=== PATIENT | female | born 1985 | race Caucasian/White ===

== ENCOUNTER 2017-06-03 08:57 | Inpatient (IN) | payer OTHER, MEDICAID ==
[2017-06-03] VITALS (10 sets, daily range): BP systolic 120–169; BP diastolic 66–114; PULSE 79–95; RESP 16–22; O2SAT 96–100
[~2017-06-03] VITALS: Ht 152.4 cm; Wt 92.4 kg
[~2017-06-03 08:57] MED LIST: BIFI4CAP PO; LORA10TA7 PO; OMEP-113 PO
--- NOTE | 2017-06-03 09:09 | ED.REPORT ---
HPI-Stroke / CVA Jun 03, 2017 ED Provider: Dr. Ramirez Pt is a 32 y/o female w/ a hx of ventral septal defect s/p repair, down syndrome , presenting to the ED with her sister c/o L-sided weakness onset this morning. At 22:00 last night the patient noticed she was having some slurred speech when she was trying to talk to someone over Facetime. This morning, after waking up she was showering and noticed that she was having trouble lifting her left arm to wash herself and also was experiencing left-sided facial numbness. It is unclear if she was experiencing this weakness immediately after waking up. She went to work and fellow employees noticed that she was having difficulty using her left arm and leg and sent her home. Her speech is normal at current time per her sister. The patient has no history of stroke. She did have a ventral septal defect repair at an age younger than 4 and doctors at that point told her she would be at least a moderate risk for stroke by the age of 32 because of this. She is not anticoagulated and does not take aspirin. She does not smoke , drink, or take drugs. Nursing Notes Stated Complaint: NUMB ON SIDE OF FACE AND BODY Chief Complaint: Stroke Symptoms Nursing Notes Reviewed: Yes Allergies: Coded Allergies: ketamine (Verified Allergy, Severe, anaflaxis, 03/27/15) Sulfa (Sulfonamide Antibiotics) (Verified Allergy, Unknown, 03/27/15) Scheduled Bran/Gum/Fib/Bety/Psyl/Kelp/Pec (Fiber 6 Tablet) 1,000 Mg Tablet 1,000 MG PO BID (Reported) L.acidoph & Paracasei,B.lactis (Probiotic) 10 Billion Cell Capsule 1 EACH PO DAILY (Reported) Loratadine (Loratadine) 10 Mg Capsule 10 MG PO DAILY (Reported) Norgestimate-Ethinyl Estradiol (Previfem) 1 Each Tablet 1 EACH PO DAILY ( Reported) Omeprazole (Omeprazole) 20 Mg Capsule.dr 20 MG PO DAILY (Reported) General Time Seen by Provider: 09:10 Chief Complaint Weakness Left-sided Hx Obtained From: Patient, Other family... Arrived By: Walk-in Time last known well 2200 Sudden in Onset?: No (unknown) Symptom Duration: Since onset Progression Since Onset: Gradually worsening (unknown) Severity: Current: No pain currently Severity: Maximum: No pain Recent Healthcare: No recent hospitalization Similar Sx Previous: No Risk Factors )( TPA Administration/Criteria Stroke Thrombolytic Therapy : TPA Considered: Yes Neurologist Contacted: No TPA Administered Intravenously: No, exclusion criteria NIH Stroke Scale Level of Consciousness: Alert and responsive (0) Ask Month & Age: Trauma/lang barrier (1) Open/Close Eyes/Hand Shovel Log Loader Operator: Performs both tasks (0) Horizontal EO Movements: None (0) Visual Casey: No visual loss (0) Facial Palsy: Unil complete, up&low (3) Right Arm Motor Drift (10s): No drift 10 sec (0) Left Arm Motor Drift (10s): Drift, not touch bed (1) Right Leg Motor Drift (5s): No drift 5 sec (0) Left Leg Motor Drift (5s): No drift 5 sec (0) Limb Ataxia FNF/Heel-Zavala: Ataxia in 1 limb (1) (LUE) Sensation (Arms/Legs/Face): No sensory loss (0) Language Aphasia: No aphasia, normal (0) Dysarthria: No dysarthria, normal (0) (baseline per sister) Extinction/Inattention: No exctinct/inattent (0) NIHSS Score: 6 Time NIHSS Performed: 09:15 Date NIHSS Performed: Jun 03, 2017 Past Medical History Past Medical History Notes: Deathly afraid of needles - very difficult IV start due to noncompliance Past Medical History Down syndrome Ventral septal defect s/p repair at young age (less than 2) Anxiety Constipation IBS Past Surgical History Ventral septal defect repair Vaginal malformation Smoking History Never Smoker Social History Alcohol Use: Denies alcohol use Drug Use: Denies drug use Ambulatory Status Independent Review of Systems Neurologic: Reports: Focal weakness, Numbness, Slurred speech Complete sys rev & neg: except as marked. Physical Exam Initial Vital Signs Vital Signs (First) Date Time Temp Pulse Resp B/P Pulse Ox O2 Delivery O2 Flow Rate FiO2 06/03/17 09:05 36.7 84 16 150/114 100 Room Air Initial VS: Reviewed, Vital signs normal ENT: Mucous membranes moist, Conjunctiva normal, No scleral icterus Abdomen / GI: Soft, Non-tender Skin: Warm, Dry, No cyanosis Psychiatric: Mood/affect normal, Behavior normal, Normal thought content General/Constitutional: Awake, Alert, No acute distress, Cooperative, Not toxic appearing Appearance consistent with Down syndrome Head / Eyes: Atraumatic, Normocephalic, PERRL, EOMI Neck: Atraumatic, Supple, No meningismus, Full range of motion Respiratory / Chest: Breath sounds NL, Breath sounds = bilat, No respiratory distress, No rales, No rhonchi, No wheezing Cardiovascular: Heart rate NL, Regular rhythm, Heart sounds NL, No murmurs Neurologic: Oriented X3, Speech NL (baseline), No sensory deficits, Memory NL See NIH stroke scale = 6 Interpretation & Diagnostics Interpretation & Diagnostics: MRI brain w/out contrast: IMPRESSION: 1. Small right frontal temporal focus of acute to subacute ischemia. No visualized superimposed hemorrhage. Dictated by: Kori Pike M.D. on 06/03/2017 at 13:25 Approved by: Kori Pike M.D. on 06/03/2017 at 13:28 Lab Results Interpretation Result Diagram: 06/03/17 1410 06/03/17 1410 Test 06/03/17 10:46 06/03/17 14:10 Urine Color Straw (YELLOW) Urine Appearance Hazy (CLEAR,HAZY) Urine pH 6.0 (5.0-8.0) Urine Specific [place] 1.005 (1.003-1.035) Urine Protein Negativemg/dL (NEG,TRACE) Urine Glucose (UA) Negativemg/dL (NEGATIVE) Urine Ketones Negativemg/dL (NEGATIVE) Urine Occult Blood Negative (NEGATIVE) Urine Nitrite Negative (NEGATIVE) Urine Bilirubin Negative (NEGATIVE) Urine Urobilinogen Normalmg/dL (NORMAL) Urine Leukocyte Esterase Negative (NEGATIVE) Urine RBC 0-2/hpf (0-2) Urine WBC 0-5/hpf (0-5) Urine Epithelial Cells Occasional/hpf (NONE-MOD) Urine Crystals None seen (NONE SEEN) Urine Bacteria Few/hpf (NONE-FEW) Urine Hyaline Casts None/lpf (NONE) Urine Granular Casts None seen (NONE SEEN) Urine Waxy Casts None seen (NONE SEEN) Urine Red Blood Cell Casts None seen (NONE SEEN) Urine White Blood Cell Casts None seen (NONE SEEN) Urine Mucus None seen (None Seen) Urine Trichomonas None seen (NONE SEEN) Urine Yeast None (NONE SEEN) Urinalysis Comment None Urine Culture Reflexed Not indicated White Blood Count 11.2th/mm3 (3.8-10.1) Red Blood Count 5.60mil/mm3 (3.90-5.20) Hemoglobin 15.8g/dL (12.0-15.6) Hematocrit 48.0% (35.0-46.0) Mean Corpuscular Volume 85.7fL (81-100) Mean Corpuscular Hemoglobin 28.2pg (27.0-35.0) Mean Corpuscular Hemoglobin Concent 32.9% (32.0-37.0) Red Cell Distribution Width 12.9% (12.3-15.4) Platelet Count 221bil/L (150-400) Neutrophils (%) (Auto) 65.8% (40-74) Lymphocytes (%) (Auto) 26.8% (14-46) Monocytes (%) (Auto) 6.5% (4-12) Eosinophils (%) (Auto) 0.3% (0-5) Basophils (%) (Auto) 0.4% (0-3) Prothrombin Time 9.5sec (8.1-12.5) Prothromb Time International Ratio 0.89ratio Activated Partial Thromboplast Time 23.8sec (22.8-33.0) Sodium Level 146mEq/L (134-144) Potassium Level 4.7mEq/L (3.5-5.2) Chloride Level 104mEq/L (97-108) Carbon Dioxide Level 20mmol/L (18-29) Blood Urea Nitrogen 7mg/dL (6-20) Creatinine 0.92mg/dL (0.57-1.00) Estimat Glomerular Filtration Rate 103mL/min (>59) Glucose Level 98mg/dL (60-99) Calcium Level 9.3mg/dL (8.5-10.1) Total Bilirubin 0.3mg/dL (0.0-1.2) Aspartate Amino Transf (AST/SGOT) 35U/L (0-50) Alanine Aminotransferase (ALT/SGPT) 28U/L (0-32) Alkaline Phosphatase 87U/L (25-150) Troponin T < 0.010ug/L (0.0-0.011) Total Protein 7.9g/dL (6.4-8.4) Albumin 4.1g/dL (3.4-5.0) ECG Interpretation ECG Interpretation: Sinus rhythm rate 74 RBBB No prior available for comparison Time: 10:54 Interpreted by: ED physician Normal ECG Interpretation: No acute ischemic changes CT Head Interpretation IMPRESSION: 1. Findings suspicious for small, subacute right frontal lobe infarct. Recommend MRI of the brain for further evaluation. 2. Findings telephoned to Dr. Hawk Ramirez 06/03/17 at 0921 hours. This study fulfills neurological imaging criteria for inclusion or exclusion of acute stroke therapies based on available published neurological imaging guidelines. Dictated by: Hiwot Strong MD, PhD on 06/03/2017 at 10:02 Approved by: Hiwot Strong MD, PhD on 06/03/2017 at 10:08 Study: Head CT no contrast Interpretation / Wet Read by: Interpret - Radiologist, Discussed w radiologist Re-Eval/Medical Decision Med Decision/Clinical Course 32-year-old female history of Down syndrome and VSD repaired at presenting with left upper extremity weakness and left facial droop last known normal last night. Patient with difficulty speaking last night. Then they noticed left upper extremity weakness and left facial droop on waking up this morning. Last normal greater than 12 hours prior to arrival. Code stroke was called with question of subacute right frontal infarct. Not a TPA candidate given well out of the window. MRI was performed with right frontotemporal infarct. Patient will be admitted for stroke workup. Given aspirin. Source of Hx: Family Re-Evaluation/Progress #1: Time of Eval: 09:37 Re-Evaluation/Progress Note: Pt rechecked. Informed pt and family of need for admission. Pt understands and agrees with plan for admission. All questions addressed. Re-Evaluation/Progress #2: Time of Eval: 11:58 Re-Evaluation/Progress Note: It has been very difficult to obtain an IV and labs due to patient resisting placement despite sedatives being given. She is very distraught whenever an IV is attempted to be placed. Re-Evaluation/Progress #3: Time of Eval: 13:53 Re-Evaluation/Progress Note: MRI obtained. Still attempting to place IV / obtain labs... Consultation : Referral / Consult Name: Dave Finley MD Consulted With: Hospitalist Call Returned at: 15:39 Owner Oral Surgeon: Will see patient, Agrees with eval, Agrees with plan, Accepts admit Counseled Regarding: Diagnosis, Lab results, Need for admission Patient Discharge & Departure Impression: Primary Impression: Acute ischemic stroke Disposition: ADMITTED TO HOSPITAL Discharge Condition All VS Reviewed: Yes Condition: Stable Referrals: Nilesh Harper MD (PCP) Crit Care Except Billable Proc Time Spent: 30-74 minutes Services Performed: Patient management by me, Time spent at bedside, Reviewing test results, Reviewing imaging, Discussing patient care, Documentation in record, Time with fam/surrogate Critical Care Notes: 35 minutes Scribe Attestation Portions of this note were transcribed by Zeeshan Rose. I, Dr. Ramirez personally performed the history, physical exam and medical decision-making; I reviewed and confirmed the accuracy of the information in the transcribed note. copies to: Nilesh Harper MD, Ben M MD Jun 03, 2017 09:09 ZEESHAN ROSE Jun 03, 2017 09:19
--- NOTE | 2017-06-03 10:03 | NUR ---
spiritual care: code response supportive attention to pt's sister rene as pt received care. caregiver and aunt notified. spiritual care available to follow as needed.
--- NOTE | 2017-06-03 10:09 | DRSVH ---
PROCEDURE: CT BRAIN TPA INDICATIONS: left sided facial droop/left hand weakness TECHNIQUE: Noncontrast 4.5 mm thick angled axial sections acquired from the foramen magnum to the vertex, with c oronal reformats. COMPARISON: None. FINDINGS: Image quality: Limited by patient motion. CSF spaces: Basal cisterns are patent. No extra-axial fluid collections. Ventricles are normal in size and shape. Brain: No midline shift. No intracranial masses or hemorrhage. There is a focal, subtle hypodensity with local loss of beckford-white matter differentiation in the right frontal lobe suspicious for subacu te infarct. Incidental note made of cavum septum pellucidum. Skull and face: Calvarium and visualized facial bones are intact, without suspicious lesions. Sinuses: Visualized sinuses and mastoids are clear. IMPRESSION: 1. Findings suspicious for small, subacute right frontal lobe infarct. Recommend MRI of the brain for further evaluation. 2. Findings telephoned to Dr. Hawk Ramirez 06/03/17 at 0921 hours. This study fulfills neurological imaging criteria for inclusion or exclusion of acute stroke therapie s based on available published neurological imaging guidelines. Dictated by: Hiwot Strong MD, PhD on 06/03/2017 at 10:02 Approved by: Hiwot Strong MD, PhD on 06/03/2017 at 10:08
[2017-06-03] MEDS ORDERED: LORazepam 1 mg Tablet PO ONE (10:40)
[2017-06-03 11:46] LABS: APPEARANCE,URINE HAZY (CLEAR,HAZY); COLOR,URINE STRAW (YELLOW); OCCULT BLOOD,URINE NEGATIVE (NEGATIVE); UROBILINOGEN,URINE NORMAL (NORMAL)
[2017-06-03] MEDS ORDERED: FIBE1TAB4 PO (13:30)
[2017-06-03] MEDS ORDERED: OMEP20CA11 PO (13:30)
[2017-06-03] MEDS ORDERED: LORA10CA9 PO (13:30)
[2017-06-03] MEDS ORDERED: NORG1TAB82 PO (13:30)
[2017-06-03] MEDS ORDERED: L.AC1CAP6 PO (13:30)
[2017-06-03 14:22] LABS: BASOPHILS % (AUTO) 0.4 % (0-3); EOSINOPHILS % (AUTO) 0.3 % (0-5); MONOCYTES % (AUTO) 6.5 % (4-12); Mean Corpuscular Hemoglobin 28.2 pg (27.0-35.0); Mean Corpuscular Volume 85.7 fL (81-100); NEUTROPHILS % (AUTO) 65.8 % (40-74); Platelet Count 221 bil/L (150-400)
--- NOTE | 2017-06-03 14:29 | DRSVH ---
PROCEDURE: MRI BRAIN WITHOUT CONTRAST ([id number]) INDICATIONS: Left facial droop. Left upper extremity weakness TECHNIQUE: Noncontrast axial T1 spin echo, axial T2 fast spin echo, sagittal and axial FLAIR, coronal T2 fast sp in echo, axial gradient echo, axial diffusion and ADC through the brain. COMPARISON: None. FINDINGS: Image quality: Excellent. CSF Spaces: Basal cisterns are patent. No extra-axial fluid collections. Ventricles are normal in size and shape. Brain: No intracranial masses or hemorrhage. Mckee/white matter interface is normal. Brainstem appe ars normal. Diffusion-weighted images demonstrate hyperintense signal within the right frontal tempo ral lobe with corresponding hypointense ADC and hyperintense T2/FLAIR signal intensity. No chronic is chemic insults. Normal intravascular flow voids are present. There is incidental note of a cavum se ptum pellucidum. Skull and face: Calvarium has normal marrow signal. Orbits appear normal. Sinuses: Sinuses and mastoids are clear. IMPRESSION: 1. Small right frontal temporal focus of acute to subacute ischemia. No visualized superimposed hemor rhage. Dictated by: Koir Pike M.D. on 06/03/2017 at 13:25 Approved by: Kori Pike M.D. on 06/03/2017 at 13:28
[2017-06-03 14:48] LABS: INR 0.89 ratio
[2017-06-03 15:00] LABS: TROPONIN T < 0.010 ug/L (0.0-0.011)
--- NOTE | 2017-06-03 15:22 | NUR ---
Evaluation completed. Please go to "Notes" then click on "Assessments and Notes" (bottom left corner of screen). Then select appropriate discipline tab on top of screen.
--- NOTE | 2017-06-03 15:41 | PCM.HPMED ---
Subjective Date of Service Jun 03, 2017 Primary Provider: Admitting Physician: Dave Finley MD Primary Care Physician: Nilesh Harper MD Attending Physician: Dave Finley MD Chief Complaint: Left sided weakness History of Present Illness: This is a 52-year-old female with a history of ventral septal defect, status post repair, Down syndrome. Patient presented to the ED with left-sided weakness that started today in the morning. Her labs showed mild Hypernatremia , EKG personally reviewed, significant for sinus rhythm, first-degree AV block, with AK 205, QRS 94, QTC 420. MRI showed Small right frontal temporal focus of acute to subacute ischemia. Patient admitted to the hospital for further evaluation and management. I ordered PT OT, aspirin daily, Lipitor 40 mg daily , swallow evaluation. Review of Systems: REVIEW OF SYSTEMS: GENERAL: no malaise, no fevers., SEE HPI HEENT: Negative for frequent or significant headaches All other reviewed and negative other than HPI. Allergies Coded Allergies: ketamine (Verified Allergy, Severe, anaflaxis, 03/27/15) Sulfa (Sulfonamide Antibiotics) (Verified Allergy, Unknown, 03/27/15) PMH ventral septal defect, status post repair; Down syndrome Surgical History Ventricular septal defect repair Family History Hypertension Social History Hx Alcohol Use: No Hx Substance Use: No Hx Tobacco Use: No Smoking Status: Never Smoker Exam Vital Signs Vital Sign - Last Date Time Temp Pulse Resp B/P Pulse Ox O2 Delivery O2 Flow Rate FiO2 06/03/17 15:28 36.8 91 18 120/66 99 Room Air Exam PHYSICAL EXAM: GENERAL: Alert, not in distress, cooperative HEAD: atraumatic, normocephalic, no bruises. EYES: EOMI, anicteric SKIN: Skin color normal, turgor normal. No visible rashes or lesions. EAR, NOSE, MOUTH, THROAT: Lips, oral mucosa, tongue are moist, pink, no lesions. NECK: supple ROM normal. RESPIRATORY: Lungs clear to auscultation. Good diaphragmatic excursion. Normal percussion sound. CARDIAC: normal S1 and S2; no rubs, or gallops; regular rate and rhythm ABDOMEN: Abdomen soft, non-tender. BS normal. No masses or organomegaly. MUSCULOSKELETAL: ROM full, muscles are not tender EXTREMITIES: no pitting edema in LE, no new deformities or skin discoloration. NEURO: Alert, oriented X 3, Sensation grossly intact., Left facial droop present, other Cranial nerves II-XII intact, Motor function - left sided weakness mostly affecting L arm/hand. PULSES: 2+ radial, 2+ carotid Lab and Diagnostics Result Diagram: 06/03/17 1410 06/03/17 141 Assessment & Plan This is a 52-year-old female with a history of ventral septal defect, status post repair, Down syndrome. Patient presented to the ED with left-sided weakness that started today in the morning. Her labs showed mild Hypernatremia , EKG personally reviewed, significant for sinus rhythm, first-degree AV block, with AK 205, QRS 94, QTC 420. MRI showed Small right frontal temporal focus of acute to subacute ischemia. Patient admitted to the hospital for further evaluation and management. Acute stroke - PT/OT, aspirin daily, Lipitor 40 mg daily, swallow evaluation, echocardiography. Hyponatremia - Mild - monitor DVT PROPHYLAXIS: Heparin Code status: Full code Disposition: discharge in 1-2 days after patient improves. Plan of care discussed with ED physician; Labs, radiology tests, Tele and ECG reviewed. Plan of care, medication side effects, home medication, diagnostic procedures and available alternatives were discussed and reviewed with patient/family. All questions answered. Patient/family verbalized understanding, approved and agreed to plan of care. Given patient's current condition, I certify, in my opinion inpatient services greater than two midnights are medically necessary for this patient. Please see H&P and MD progress notes for additional information about patient's course of treatment. VTE Prophylaxis: Sub-Q Heparin (Unfractionated) Resuscitation Status: CPR: Attempt Resuscitation Dave Finley MD Jun 03, 2017 15:41
[2017-06-03] MEDS ORDERED: Ondansetron 2 mg/mL 2 mL Inj IVPUSH PRN (15:45)
[2017-06-03] MEDS ORDERED: Alum-Mag Hydrox-Simeth 30 mL Suspension PO PRN (15:45)
[2017-06-03] MEDS ORDERED: Polyethylene Glycol (PEG) 17 Gm Powder PO PRN (16:20)
[2017-06-03] MEDS: Heparin 5,000 Unit/mL Inj SUBQ SCH (16:30)
--- NOTE | 2017-06-03 19:35 | NUR ---
Admit: Patient arrived to [facility] @ approx 1630 via stretcher. Ambulated from stretcher to bed 2PA. Stand up weight obtained. Alert & oriented. Family at bedside. Denies pain, nausea, CHICAS. Complained of dizziness. SR 80s per crime lab technician. VSS. Left facial droop, left drum worker weakness, slurred speech with drooling. Stroke booklet provided. Family relays issue of patients extreme fear to needles. Requesting not to have any blood draw or needle sticks. Refused Heparin injections. Discussed risk for blood clots. Bed in low and locked position, bed rails up x3, call light within reach, non-skid socks on for safety. Oriented to room and call light system.
[2017-06-04] VITALS (8 sets, daily range): BP systolic 117–142; BP diastolic 80–86; PULSE 70–79; RESP 14–18; O2SAT 97–100
[2017-06-04] MEDS: Heparin 5,000 Unit/mL Inj SUBQ SCH ×4 (00:30→19:14)
--- NOTE | 2017-06-04 05:56 | NUR ---
Nurse Note Noc shift Patient is alert and oriented to self, place and time, disoriented to situation, appears to have some developmental delay. She denies chest pain but reported some left face pain which was relieved by Tylenol. She has a slurred mumbled speech, left sided facial droop, left arm flaccid and some numbness, and slight weakness on left leg. Pupils are round equal and reactive to light and accommodating. Patient did not have any new neurological symptoms. Heparin held because patient is terrified by needles and mother requested for med to be held. Pt was up few times to use BSC required 2 PA with transfer. she slept well most of the night, parent in the room with patient all shift.
--- NOTE | 2017-06-04 07:42 | NUR ---
NUTRITION ASSESSMENT: ASSESS:32 YO female presented to the ED with left-sided weakness that started yesterday morning. MRI showed small right frontal temporal focus of acute to subacute ischemia. Her diet has been unable to be advanced beyond stimulation by Speech Therapy. PO intake 75% x 1 tray, insufficient to meet nutrient needs, as stimulation diet consists of 2 items per tray of pureed textured foods. PMHx:Ventral septal defect, status post repair, Down syndrome. DIET:Stimulation, nectar thick liquids. PO intake 75% x 1 tray. LABS: Reviewed. No labs ordered today. MEDICATIONS: Reviewed. NUTRITION FOCUSED PHYSICAL ASSESSMENT: GI symptoms / stool: No BM reported.Jan: 19. Skin Integrity: No issues reported. ANTHROPOMETRICS: Current Wt: 92.7 kgBMI: 39.0 kg/m2. IBW: 45.5 kg (203.9% IBW) ESTIMATED NEEDS (CLASS II OBESITY): Calories: 1136 - 1364 kcal (25 - 30 kcal / kg IBW) Protein: 82 - 91 g protein (1.8 - 2.0 g / kg IBW) NUTRITION DIAGNOSIS: 1)Chewing / swallowing difficulties related to acute CVA, as evidenced by inability to advance diet beyond stimulation texture, with associated inadequate PO intake. INTERVENTION: 1) Once diet advanced beyond stimulation texture, will add supplements to trays to better meet nutrient needs. MONITOR/EVALUATE: Diet advance / tolerance, PO intake, labs, GI/nutrition status. Follow up per moderate nutrition risk guidelines.
--- NOTE | 2017-06-04 09:14 | NUR ---
Social Work: Initial Assessment Data: Pt is a 32 y/o female admitted for stroke. Pt's PCP is Dr Harper, pt's insurance is [employer]/disabled with [facility] Medicaid. EMR reviewed, readmit score is 2, low. Pt has downsyndrome. Pending therapies: PT, OT. HOME HEALTH TRAVEL OT met with pt and mother at bedside, role explained. Pt states she lives in [place] with her sister and roommate in a single story home where she uses no DME. She has no hx of HH or SNF, no LTC or VA benefits, and is not a caregiver. Pt has a caregiver, Thao Moreira through [facility], possibly DD services. Pt's mother states pt has not been up out of bed while in the hospital so far. HOME HEALTH TRAVEL OT will follow up post therapy assessments for possible d/c needs. Assessment: Pt with caregiving at baseline. Downsyndrome. Plan: HOME HEALTH TRAVEL OT will follow up post therapy assessments for possible d/c needs. GHAZALA Riojas Addendum: 06/04/17 at 0918 by AVRIL PARRY Amended: Links added.
[2017-06-04] MEDS ORDERED: Haloperidol 5 mg/mL Inj IVPUSH ONE (10:05)
--- NOTE | 2017-06-04 12:32 | NUR ---
Off Unit: Patient transported to [facility] @ approx 1230 via wheelchair accompanied by transporter and patients sister. digital imaging technician notified. No apparent distress noted at time of transport
--- NOTE | 2017-06-04 12:35 | DRSVH ---
[facility] [address] [place] [address] Echocardiogram Report Name: LATRICE MCBRIDE Date: 2016 Height: 60 in Hospital Exam Location: [facility] Weight: 204 lb Gender: Female BSA: 1.9 m2 : 1985 Age: 32 yrs BP: 129/84 mm Hg Reason For Study: STROKE Ordering Physician: Performed By: Cari Grier Referring Physician: NATALIA BORGES Interpretation Summary The left ventricle is normal in size, wall thickness, and systolic function without any focal wall motion abnormalities. The ejection fraction is estimated to be 55-60%. Assessment of diastolic parameters indicates normal left ventricular diastolic function and normal filling pressures. The right ventricle is not well visualized. Pulmonary artery pressures cannot be estimated because of the lack of a measurable TR jet velocity. The left atrial size is normal. The right atrium is normal in size. Injection of contrast documented no interatrial shunt. There is no Doppler evidence for an interatrial shunt. There is no significant valvular heart disease. The aortic root is normal size. No clear cut evidence for a cardioembolic stroke. Procedure: A two-dimensional transthoracic echocardiogram with color flow and Doppler was performed. A saline contrast injection was performed to assess for cardiac shunting. The injection was performed through an intravenous line in the right arm. The study quality was technically difficult. There is no prior echocardiogram noted for this patient. The patient was in normal sinus rhythm during the exam. Left Ventricle: The left ventricle is normal in size, wall thickness, and systolic function without any focal wall motion abnormalities. The ejection fraction is estimated to be 55-60%. Assessment of diastolic parameters indicates normal left ventricular diastolic function and normal filling pressures. Right Ventricle: The right ventricle is not well visualized. Atria: The left atrial size is normal. The right atrium is normal in size. Injection of contrast documented no interatrial shunt. There is no Doppler evidence for an interatrial shunt. Mitral Valve: The mitral valve leaflets appear mildly thickened, but open well. The mitral valve leaflets appear to open well. There is trace mitral regurgitation. Aortic Valve: The aortic valve is normal in structure and function. No aortic regurgitation is present. Tricuspid Valve: The tricuspid valve is normal. There is a trace or physiologic amount of tricuspid regurgitation. Pulmonary artery pressures cannot be estimated because of the lack of a measurable TR jet velocity. Pulmonic Valve: The pulmonic valve leaflets are thin and pliable; valve motion is normal. There is a trace or physiologic amount of pulmonic regurgitation. There is no significant valvular heart disease. Great Vessels: The aortic root is normal size. The ascending aorta is normal in size. The aortic arch is normal in size. The pulmonary artery is not well visualized, but is probably normal size. The inferior vena cava was not visualized. Pericardium/ Pleura There is no pericardial effusion. There is no pleural effusion. MMode/2D Measurements & Calculations LVIDd: 4.1 cm RA long axis LVOT diam: 2.1 cm LVIDs: 2.4 cm LA A2 area: 15.2 cm AoV Opening FS: 42.9 % LA A4 area: 17.1 cm RA area EPSS: 0.28 cm LA length (vol) Ao root diam IVSd: 0.96 cm : 11.6 cm LVPWd: 1.1 cm LA vol: 48.7 ml RA vol asc Aorta Diam LA vol index : 30.6 ml RA Ao Arch Diam (Prox : 25.9 ml/m2 : 16.3 mm2 Trans): 2.2 cm LV henriquez. diameter/BSA LV sys. diameter/BSA (cm/m^2): 2.2 (cm/m^2): 1.3 Doppler Measurements & Calculations Ao V2 max MV E max tom MV E/A: 1.8 PA V2 max : 77.8 cm/sec : 109.4 cm/sec Med Peak E' Tom : 88.6 cm/sec Ao max PG MV A max tom PA mean PG : 2.4 mmHg : 59.9 cm/sec E/E' med: 11.7 Ao mean PG MV P1/2t: 54.6 msec Lat Peak E' Tom PA Accel Time : 0.12 sec LVOT Max Tom E/E' lat: 8.2 : 69.1 cm/sec E/e' average: 9.9 JODY(I,D): 2.9 cm sev ratio MV dec time MV P1/2t max tom Ao V2 mean LV V1 max PG : 0.19 sec : 59.1 cm/sec MVA(P1/2t): 4.0 cm2 Ao V2 VTI: 15.5 cm LV V1 VTI JODY(V,D): 2.9 cm2 : 13.4 cm PA V2 mean JODY indexed to BSA : 66.8 cm/sec (cm^2/m^2): 1.5 Reading Physician:JESÚS
--- NOTE | 2017-06-04 12:43 | PCM.PNMED ---
Subjective Date of Service Jun 04, 2017 Subjective Patient seen and examined. Sitting comfortably in bed. Vitals stable. Exam Vital Signs Vital Sign - Last Date Time Temp Pulse Resp B/P Pulse Ox O2 Delivery O2 Flow Rate FiO2 06/04/17 10:41 75 06/04/17 10:38 36.9 16 130/84 100 Room Air Intake and Output 06/03/17 06/03/17 06/04/17 Cumulative From/Thru 15:00 23:00 07:00 06/03/17 09:16 - 06/04/17 05:53 Intake Total 100 ml 100 ml 200 ml Balance 100 ml 100 ml 200 ml Intake Oral 100 ml 100 ml 200 ml # Voids 1 3 4 Exam GENERAL: Alert, not in distress, cooperative HEAD: atraumatic, normocephalic, no bruises. RESPIRATORY: Lungs clear to auscultation. Good diaphragmatic excursion. Normal percussion sound. CARDIAC: normal S1 and S2; no rubs, or gallops; regular rate and rhythm ABDOMEN: Abdomen soft, non-tender. BS normal. No masses or organomegaly. EXTREMITIES: no pitting edema in LE, no new deformities or skin discoloration. NEURO: Alert, oriented X 3, Sensation grossly intact., Left facial droop present, other Cranial nerves II-XII intact, Motor function - left sided weakness mostly affecting L arm/hand. PULSES: 2+ radial, 2+ carotid Lab and Diagnostics Result Diagram: 06/03/17140906/03/17 141 Assessment & Plan This is a 52-year-old female with a history of ventral septal defect, status post repair, Down syndrome. Patient presented to the ED with left-sided weakness that started today in the morning. Her labs showed mild Hypernatremia , EKG personally reviewed, significant for sinus rhythm, first-degree AV block, with WI 205, QRS 94, QTC 420. MRI showed Small right frontal temporal focus of acute to subacute ischemia. Patient admitted to the hospital for further evaluation and management. Acute stroke - PT/OT, aspirin daily, Lipitor 40 mg daily, swallow evaluation, echocardiography. - MRA head and neck - Tele monitoring Agitation 2/2 to Down Syndrome - haldol and ativan prn Hyponatremia, resolved - Mild - monitor DVT PROPHYLAXIS: Heparin Code status: Full code Disposition: discharge in 1-2 days after patient improves. Plan of care discussed with ED physician; Labs, radiology tests, Tele and ECG reviewed. Plan of care, medication side effects, home medication, diagnostic procedures and available alternatives were discussed and reviewed with patient/family. All questions answered. Patient/family verbalized understanding, approved and agreed to plan of care. Given patient's current condition, I certify, in my opinion inpatient services greater than two midnights are medically necessary for this patient. Please see H&P and MD progress notes for additional information about patient's course of treatment. VTE Prophylaxis: Sub-Q Heparin (Unfractionated) Resuscitation Status: CPR: Attempt Resuscitation Time spent 35 mins Glen Davis MD Jun 04, 2017 12:43
--- NOTE | 2017-06-04 14:27 | DRSVH ---
PROCEDURE: MRA ANGIOGRAM NECK WITH AND WITHOUT CONTRAST ([id number]) INDICATIONS: Stroke TECHNIQUE: Axial and sagittal TruFISP through the neck. Coronal dynamic MRA after the administration of contras t in the arterial and venous phases, with rotating 3-dimensional maximum intensity projection (MIP) r eformats constructed from subtraction images. COMPARISON: [facility], MR, MR ANGIO HEAD WO CON, 06/04/2017, 12:47. FINDINGS: Image quality: Excellent. The origins of the left and right common, internal and external carotid arteries demonstrate no areas of hemodynamically significant stenosis, vascular occlusion or aneurysmal dilation. Origins of the l eft and right vertebral arteries demonstrate motion artifact, particularly on the right limiting eval uation. However, it is suspected that there is likely a mild degree of stenosis bilaterally, likely 3 0-50% on the left and at least 50% on the right. 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 Limited, visuali zed portions of the subclavian vasculature are unremarkable. IMPRESSION: 1. Suboptimally visualized origins of the vertebral arteries as above with likely 30-50% stenosis. 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 Otherwise, no hemodynamically sig nificant stenosis within the neck vasculature. The estimate of stenosis included in the report of the imaging study was calculated using the NASCET method Dictated by: Kori Pike M.D. on 06/04/2017 at 13:18 Approved by: Kori Pike M.D. on 06/04/2017 at 13:25
--- NOTE | 2017-06-04 14:43 | DRSVH ---
PROCEDURE: MRA ANGIOGRAM HEAD WITHOUT CONTRAST ([id number]) INDICATIONS: Stroke TECHNIQUE: Noncontrast axial 3-D [id number] MR angiogram, with 3-dimensional maximum intensity projection (M IP) reformats of the internal carotid arteries and posterior circulation then performed. COMPARISON: [facility], MR, MR ANGIO NECK W&WO CON, 06/04/2017, 12:47. [facility], MR, MR BRAIN WO CON, 06/03/2017, 13:33. [facility], CT, CT BRAIN TPA, 06/03/2017, 9 :09. [facility], CT, CT BRAIN TPA, 06/03/2017, 9:09. FINDINGS: Image quality: Motion is present during multiple portions of the examination. The anterior circulation, including the anterior and middle cerebral arteries, as well as the interna l carotid arteries demonstrates no areas of hemodynamically significant stenosis, vascular occlusion or aneurysmal dilation. The left A1 segment of the anterior cerebral artery demonstrates hypoplasia, consistent with congenital variant. The posterior circulation demonstrates a left vertebral artery dominance. Basilar artery and posterio r cerebral arteries demonstrate no areas of hemodynamically significant stenosis, vascular occlusion or aneurysmal dilation. Posterior communicating arteries are within normal limits. It is noted that t here is persistence of left circulation, consistent with congenital variation. There is incidental note of cavum septum pellucidum. IMPRESSION: 1. No areas of hemodynamically significant stenosis, vascular occlusion or aneurysmal dilation withi n the anterior circulation. 2. No areas of hemodynamically significant stenosis, vascular occlusion or aneurysmal dilation withi n the posterior circulation. Dictated by: Kori Pike M.D. on 06/04/2017 at 13:26 Approved by: Kori Pike M.D. on 06/04/2017 at 13:42
--- NOTE | 2017-06-04 15:11 | NUR ---
spiritual care: follow up brief visit with pt's sister and caregiver. pt not in room. brief report and coping: "better"
--- NOTE | 2017-06-04 17:32 | NUR ---
Pain: Patient complained of left eye pain 4/10 on pain scale. Pupils equal and reactive to light, denies double vision and blurred vision. Tylenol administered. Will follow.
[2017-06-05] VITALS (8 sets, daily range): BP systolic 122–156; BP diastolic 82–95; PULSE 70–86; RESP 18–20; O2SAT 96–100
--- NOTE | 2017-06-05 02:47 | NUR ---
CARE Pt has been in good spirits throughout the shift, pleasant in affect, compliant with care, though continuing to refuse heparin. Family/friends have been with her throughout night to assist in care and making pt's needs known. Pt continues to have l. 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 L. sided facial weakness and numbness persist with uneven smile. Pt also reported some decreased sensation in feet bilaterally. Hourly rounding and frequent neuro checks.
[2017-06-05] MEDS: Heparin 5,000 Unit/mL Inj SUBQ SCH ×3 (07:29→19:57)
--- NOTE | 2017-06-05 15:41 | DRSVH ---
PROCEDURE: X-RAY BARIUM SWALLOW WITH FOOD & VIDEOGRAPHY ([id number]) INDICATIONS: CVA TECHNIQUE: Examination was conducted in conjunction with speech pathology per standard protocol. In the lateral projection, filming was performed of the patient swallowing. AP projection filming may also be performed with patient swallowing. COMPARISON: None. FINDINGS: Function: The oral preparatory phase appears normal, with proper containment. The subsequent oral pr opulsive phase, pharyngeal phase, and esophageal phase of swallowing also appear normal with all prof fered substances. No laryngotracheal penetration or aspiration. No pathologic vallecular pooling. Morphology: No cricopharyngeal bar is identified. No cervical esophageal webs. No Zenker's diverti culum. No strictures. IMPRESSION: No laryngeal penetration or tracheobronchial aspiration. Dictated by: Benito Shields [facility] Interpreted: Luis Alberto Back MD on 06/05/2017 at 14:58 Approved by: Luis Alberto Back M.D. on 06/05/2017 at 15:39
--- NOTE | 2017-06-05 17:16 | NUR ---
MBSS completed. Please go to "Notes" then click on "Assessments and Notes" (bottom left corner of screen). Then select appropriate discipline tab on top of screen.
--- NOTE | 2017-06-05 18:51 | NUR ---
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 She is still unable to suck through a straw. Patient had a barium swallow test today and her diet has been upgraded to include some dysphasia mechanical soft foods. Patient able to ambulate in her room with SBA .
--- NOTE | 2017-06-05 20:08 | PCM.PNMED ---
Subjective Date of Service Jun 05, 2017 Subjective Patient seen and examined. Pleasant. Improved movement. Vitals stable. Exam Vital Signs Vital Sign - Last Date Time Temp Pulse Resp B/P Pulse Ox O2 Delivery O2 Flow Rate FiO2 06/05/17 16:39 37.0 75 20 156/93 100 Room Air Intake and Output 06/04/17 06/04/17 06/05/17 Cumulative From/Thru 15:00 23:00 07:00 06/03/17 09:16 - 06/05/17 06:42 Intake Total 750 ml 150 ml 1100 ml Balance 750 ml 150 ml 1100 ml Intake Oral 750 ml 150 ml 1100 ml # Voids 4 3 11 # Bowel Movements 1 1 Exam GENERAL: Alert, not in distress, cooperative HEAD: atraumatic, normocephalic, no bruises. RESPIRATORY: Lungs clear to auscultation. Good diaphragmatic excursion. Normal percussion sound. CARDIAC: normal S1 and S2; no rubs, or gallops; regular rate and rhythm ABDOMEN: Abdomen soft, non-tender. BS normal. No masses or organomegaly. EXTREMITIES: no pitting edema in LE, no new deformities or skin discoloration. NEURO: , Sensation grossly intact., Left facial droop present, other Cranial nerves II-XII intact, Motor function - left sided weakness mostly affecting L arm/hand, improving. Lab and Diagnostics Result Diagram: 06/03/17 1410 06/03/17 1410 X-Rays, CTs and MRIs MRA Brain/Neck IMPRESSION: 1. Suboptimally visualized origins of the vertebral arteries as above with likely 30-50% stenosis. 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 Otherwise, no hemodynamically significant stenosis within the neck vasculature. IMPRESSION: 1. No areas of hemodynamically significant stenosis, vascular occlusion or aneurysmal dilation within the anterior circulation. 2. No areas of hemodynamically significant stenosis, vascular occlusion or aneurysmal dilation within the posterior circulation. Cardiac Echo Impressions Interpretation Summary The left ventricle is normal in size, wall thickness, and systolic function without any focal wall motion abnormalities. The ejection fraction is estimated to be 55-60%. Assessment of diastolic parameters indicates normal left ventricular diastolic function and normal filling pressures. The right ventricle is not well visualized. Pulmonary artery pressures cannot be estimated because of the lack of a measurable TR jet velocity. The left atrial size is normal. The right atrium is normal in size. Injection of contrast documented no interatrial shunt. There is no Doppler evidence for an interatrial shunt. There is no significant valvular heart disease. The aortic root is normal size. No clear cut evidence for a cardioembolic stroke. Assessment & Plan This is a 52-year-old female with a history of ventral septal defect, status post repair, Down syndrome. Patient presented to the ED with left-sided weakness that started today in the morning. Her labs showed mild Hypernatremia , EKG personally reviewed, significant for sinus rhythm, first-degree AV block, with DE 205, QRS 94, QTC 420. MRI showed Small right frontal temporal focus of acute to subacute ischemia. Patient admitted to the hospital for further evaluation and management. Acute stroke - source unknown at this time. MRI, MRA and Echo as noted above. - PT/OT, aspirin daily, Lipitor 40 mg daily, swallow evaluation, echocardiography. - Tele monitoring Agitation 2/2 to Down Syndrome - haldol and ativan prn Hyponatremia, resolved - Mild - monitor DVT PROPHYLAXIS: Heparin Code status: Full code Disposition: discharge in 1-2 days after patient improves. Plan of care discussed with ED physician; Labs, radiology tests, Tele and ECG reviewed. Plan of care, medication side effects, home medication, diagnostic procedures and available alternatives were discussed and reviewed with patient/family. All questions answered. Patient/family verbalized understanding, approved and agreed to plan of care. Given patient's current condition, I certify, in my opinion inpatient services greater than two midnights are medically necessary for this patient. Please see H&P and MD progress notes for additional information about patient's course of treatment. VTE Prophylaxis: Sub-Q Heparin (Unfractionated) Resuscitation Status: CPR: Attempt Resuscitation Time spent 35 mins Glen Davis MD Jun 05, 2017 20:08
[2017-06-06 00:31] VITALS: BP 142/84; PULSE 77; RESP 18; O2SAT 100
[2017-06-06 05:02] VITALS: BP 141/93; PULSE 81; RESP 16; O2SAT 97
--- NOTE | 2017-06-06 05:04 | NUR ---
neuro Left hand and arm are still weak but able to move more. Pt used a straw to drink her HS med, tolerated well w/o signs of aspiration. slept most of the night. able to make needs known. Pt's father at bedside.
[2017-06-06 06:10] VITALS: PULSE 76
[2017-06-06 08:00] VITALS: PULSE 80
[2017-06-06] MEDS: Heparin 5,000 Unit/mL Inj SUBQ SCH (08:14)
[2017-06-06 08:41] VITALS: BP 134/87; PULSE 75; RESP 19; O2SAT 99
--- NOTE | 2017-06-06 12:11 | PCM.DIMED ---
Discharge Instructions Date of Service Jun 06, 2017 Dates of Hospitalization Jun 03, 2017 at 15:04 Discharge Diagnosis Discharge Diagnosis Stroke Medication Instructions Additional med instructions Please check the med list Diet Discharge Diet: No restrictions Activity Discharge Activity: No restrictions Patient Instructions Follow-up plan Outpatient physical therapy Follow-up with PCP in: 1 week (Discuss with pcp regarding OCP ) Glen Davis MD Jun 06, 2017 12:11
[2017-06-06] MEDS ORDERED: ASPI81TA3 PO (12:12)
[2017-06-06] MEDS ORDERED: ATOR40TA69 PO (12:12)
[2017-06-06 12:42] VITALS: BP 140/83; PULSE 74; RESP 18; O2SAT 97
--- NOTE | 2017-06-06 13:22 | PCM.DC.MED ---
Discharge Summary Date of Service Jun 06, 2017 Dates of Hospitalization Date of Hospital Admission Jun 03, 2017 at 15:04 Date of Discharge: Jun 06, 2017 Providers: Admitting Physician: Dave Finley MD Primary Care Physician: Nilesh Harper MD Attending Physician: Lanette Lee MD Diagnosis at Time of Discharge Diagnosis at Time of Discharge Stroke Procedures XRay, CTs & MRIs MRI Brain IMPRESSION: 1. Small right frontal temporal focus of acute to subacute ischemia. No visualized superimposed hemorrhage. MRA Brain/Neck IMPRESSION: 1. Suboptimally visualized origins of the vertebral arteries as above with likely 30-50% stenosis. 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 Otherwise, no hemodynamically significant stenosis within the neck vasculature. IMPRESSION: 1. No areas of hemodynamically significant stenosis, vascular occlusion or aneurysmal dilation within the anterior circulation. 2. No areas of hemodynamically significant stenosis, vascular occlusion or aneurysmal dilation within the posterior circulation. Cardiac Echo Impression Interpretation Summary The left ventricle is normal in size, wall thickness, and systolic function without any focal wall motion abnormalities. The ejection fraction is estimated to be 55-60%. Assessment of diastolic parameters indicates normal left ventricular diastolic function and normal filling pressures. The right ventricle is not well visualized. Pulmonary artery pressures cannot be estimated because of the lack of a measurable TR jet velocity. The left atrial size is normal. The right atrium is normal in size. Injection of contrast documented no interatrial shunt. There is no Doppler evidence for an interatrial shunt. There is no significant valvular heart disease. The aortic root is normal size. No clear cut evidence for a cardioembolic stroke. Brief History This is a 52-year-old female with a history of ventral septal defect, status post repair, Down syndrome. Patient presented to the ED with left-sided weakness that started today in the morning. Her labs showed mild Hypernatremia , EKG personally reviewed, significant for sinus rhythm, first-degree AV block, with DE 205, QRS 94, QTC 420. MRI showed Small right frontal temporal focus of acute to subacute ischemia. Patient admitted to the hospital for further evaluation and management. I ordered PT OT, aspirin daily, Lipitor 40 mg daily , swallow evaluation. Hospital Course This is a 52-year-old female with a history of ventral septal defect, status post repair, Down syndrome. Patient presented to the ED with left-sided weakness that started today in the morning. Her labs showed mild Hypernatremia , EKG personally reviewed, significant for sinus rhythm, first-degree AV block, with DE 205, QRS 94, QTC 420. MRI showed Small right frontal temporal focus of acute to subacute ischemia. Patient admitted to the hospital for further evaluation and management. Acute stroke - source unknown at this time. MRI, MRA and Echo as noted above. - aspirin daily, Lipitor 40 mg daily, - Outpatient PT - follow up with pcp Agitation 2/2 to Down Syndrome - controlled, patient does better with family around Hyponatremia, resolved - Mild - monitor Exam Vital Signs (Last) Date Time Temp Pulse Resp B/P Pulse Ox O2 Delivery O2 Flow Rate FiO2 06/06/17 12:42 36.8 74 18 140/83 97 Room Air Test 06/03/17 10:46 06/03/17 14:10 Urine Color Straw (YELLOW) Urine Appearance Hazy (CLEAR,HAZY) Urine pH 6.0 (5.0-8.0) Urine Specific [place] 1.005 (1.003-1.035) Urine Protein Negativemg/dL (NEG,TRACE) Urine Glucose (UA) Negativemg/dL (NEGATIVE) Urine Ketones Negativemg/dL (NEGATIVE) Urine Occult Blood Negative (NEGATIVE) Urine Nitrite Negative (NEGATIVE) Urine Bilirubin Negative (NEGATIVE) Urine Urobilinogen Normalmg/dL (NORMAL) Urine Leukocyte Esterase Negative (NEGATIVE) Urine RBC 0-2/hpf (0-2) Urine WBC 0-5/hpf (0-5) Urine Epithelial Cells Occasional/hpf (NONE-MOD) Urine Crystals None seen (NONE SEEN) Urine Bacteria Few/hpf (NONE-FEW) Urine Hyaline Casts None/lpf (NONE) Urine Granular Casts None seen (NONE SEEN) Urine Waxy Casts None seen (NONE SEEN) Urine Red Blood Cell Casts None seen (NONE SEEN) Urine White Blood Cell Casts None seen (NONE SEEN) Urine Mucus None seen (None Seen) Urine Trichomonas None seen (NONE SEEN) Urine Yeast None (NONE SEEN) Urinalysis Comment None Urine Culture Reflexed Not indicated White Blood Count 11.2th/mm3 (3.8-10.1) Red Blood Count 5.60mil/mm3 (3.90-5.20) Hemoglobin 15.8g/dL (12.0-15.6) Hematocrit 48.0% (35.0-46.0) Mean Corpuscular Volume 85.7fL (81-100) Mean Corpuscular Hemoglobin 28.2pg (27.0-35.0) Mean Corpuscular Hemoglobin Concent 32.9% (32.0-37.0) Red Cell Distribution Width 12.9% (12.3-15.4) Platelet Count 221bil/L (150-400) Neutrophils (%) (Auto) 65.8% (40-74) Lymphocytes (%) (Auto) 26.8% (14-46) Monocytes (%) (Auto) 6.5% (4-12) Eosinophils (%) (Auto) 0.3% (0-5) Basophils (%) (Auto) 0.4% (0-3) Prothrombin Time 9.5sec (8.1-12.5) Prothromb Time International Ratio 0.89ratio Activated Partial Thromboplast Time 23.8sec (22.8-33.0) Sodium Level 146mEq/L (134-144) Potassium Level 4.7mEq/L (3.5-5.2) Chloride Level 104mEq/L (97-108) Carbon Dioxide Level 20mmol/L (18-29) Blood Urea Nitrogen 7mg/dL (6-20) Creatinine 0.92mg/dL (0.57-1.00) Estimat Glomerular Filtration Rate 103mL/min (>59) Glucose Level 98mg/dL (60-99) Calcium Level 9.3mg/dL (8.5-10.1) Total Bilirubin 0.3mg/dL (0.0-1.2) Aspartate Amino Transf (AST/SGOT) 35U/L (0-50) Alanine Aminotransferase (ALT/SGPT) 28U/L (0-32) Alkaline Phosphatase 87U/L (25-150) Troponin T < 0.010ug/L (0.0-0.011) Total Protein 7.9g/dL (6.4-8.4) Albumin 4.1g/dL (3.4-5.0) Discharge Medications Discharge Medications Aspirin Chew (Aspirin Chew) 81 Mg Chew 81 MG PO DAILY Prescribed by: LANETTE LEE MD Atorvastatin Calcium (Atorvastatin Calcium) 40 Mg Tablet 40 MG PO HS Prescribed by: LANETTE LEE MD Bran/Gum/Fib/Bety/Psyl/Kelp/Pec (Fiber 6 Tablet) 1,000 Mg Tablet 1,000 MG PO BID (Reported) L.acidoph & Paracasei,B.lactis (Probiotic) 10 Billion Cell Capsule 1 EACH PO DAILY (Reported) Loratadine (Loratadine) 10 Mg Capsule 10 MG PO DAILY (Reported) Norgestimate-Ethinyl Estradiol (Previfem) 1 Each Tablet 1 EACH PO DAILY ( Reported) Omeprazole (Omeprazole) 20 Mg Capsule.dr 20 MG PO DAILY (Reported) Additional med instructions Please check the med list Followup Plan Follow-up plan Outpatient physical therapy Discharge Diet: No restrictions Discharge Activity: No restrictions Follow-up with PCP in: 1 week (Discuss with pcp regarding OCP ) Lanette Lee MD Jun 06, 2017 13:22
--- NOTE | 2017-06-06 13:44 | NUR ---
discharge paperwork reviewed with patient, sister and mother-no questions at this time. IV removed, tele discontinued, and patient dressed. [employer] transported patient with family to private car to return to private home.
--- NOTE | 2017-06-06 14:21 | NUR ---
Social Work: Discharge/Multidisciplinary Rounds D: EMR reviewed. Pt is on day 3 of hospitalization. Pt discussed in multidisciplinary rounds - per MD, pt is medically stable for discharge home today - no SW needs identified - no MD orders received. PT cleared pt to go home, no PT needs. SW discussed pt's capacity for self-care after discharge, no concerns identified - pt to discharge home with family who will provide care after discharge. A: Pt who has family care and support at home. Pt who has DS at baseline. Pt has capacity for self-care while living with parents. P: Pt discharged home with family via POV today. No discharge planning needs identified. No MD orders received. GHAZALA Burk
== END 2017-06-06 13:45 | disposition home or self-care (01) | DRG 65 ==
LOC: SED 08:57 → UNDOADMIN 14:59 → MPC 14:59
PROVIDERS: ADMIT Internal Medicine; ATTEND Internal Medicine
DX: I63.9 Cerebral infarction, unspecified (principal); E87.0 Hyperosmolality and hypernatremia; Q90.9 Down syndrome, unspecified; R29.706 NIHSS score 6; R45.1 Restlessness and agitation